=== PATIENT | female | born 1980 | race Caucasian/White ===

== ENCOUNTER → 2017-04-10 | Outpatient (CLI) | payer MEDICAID ==
[~2017-04-10] MED LIST: BUPR1FIL3 SC; IBUP-1223 PO; METH40TA3 PO; OXYC1TAB7 PO
== END ==
LOC: STAR 13:26
PROVIDERS: ATTEND Obstetrics & Gynecology Female Pelvic Medicine and Reconstructive Surgery
DX: Z02.9 Encounter for administrative examinations, unspecified (principal)

== ENCOUNTER 2017-04-15 10:53 | Day surgery (SDC) | payer MEDICAID ==
[2017-04-10 14:11] VITALS: BP 129/79
[~2017-04-15] VITALS: Ht 172.7 cm; Wt 72.6 kg
[~2017-04-15 10:53] MED LIST changes: +BUPIVACAINE/PF 0.25% ONE; +EPINEPHRINE 1 MG/ML, 1ML ONE; +NEOMY/POLYMYXIN B GU IRR. 1 ML IRRIG ONE
[2017-04-15] MEDS ORDERED: LACTATED RINGERS 1,000 ML IV SCH (11:17)
[2017-04-15 11:22] VITALS: BP 129/79
[2017-04-15] MEDS ORDERED: LIDOCAINE 1%, 2ML SQ PRN (11:30)
[2017-04-15 11:32] LABS: HCG UR SG 1.018 (1.003-1.030)
[2017-04-15] MEDS ORDERED: DEXAMETHASONE 4 MG/ML, 1ML ONE ×2 (13:50)
[2017-04-15] MEDS ORDERED: ROCURONIUM 10 MG/ML,10ML ONE (13:50)
[2017-04-15] MEDS ORDERED: CEFAZOLIN 1,000 MG ONE ×2 (13:50→13:51)
[2017-04-15] MEDS ORDERED: LIDOCAINE-MPF 2% ,5ML ONE (13:50)
[2017-04-15] MEDS ORDERED: PROPOFOL 10 MG/ML, 20ML ONE (13:50)
[2017-04-15] MEDS ORDERED: ONDANSETRON 2MG/ML, 2ML ONE (14:33)
[2017-04-15] MEDS ORDERED: FUROSEMIDE 20 MG/2 ML ONE (14:35)
[2017-04-15] MEDS ORDERED: KETOROLAC 30 MG/1 ML ONE (14:38)
[2017-04-15] MEDS ORDERED: FENTANYL PF 100 MCG/2ML ONE ×2 (14:53→15:19)
[2017-04-15] MEDS: FENTANYL PF 100 MCG/2ML IV PRN ×2 (15:22→15:30)
[2017-04-15] MEDS ORDERED: HYDROmorphone 2 MG/ML, 1ML ONE (15:27)
[2017-04-15] MEDS ORDERED: HYDROcodone/APAP 7.5-325MG/15ML UDC PO PRN (15:30)
[2017-04-15] MEDS ORDERED: MEPERIDINE/PF 25MG/0.5ML IVPush PRN (15:30)
[2017-04-15] MEDS ORDERED: ONDANSETRON 2MG/ML, 2ML IVPush PRN ×2 (15:30→17:00)
[2017-04-15] MEDS ORDERED: morphine SULFATE 10 MG/ML, 1ML IV PRN (15:30)
[2017-04-15] MEDS ORDERED: ACETAMINOPHEN 325 MG TABLET PO PRN ×2 (15:30→17:00)
[2017-04-15] MEDS ORDERED: OXYcodone 5 MG/5 ML ORAL.SOL UDC PO PRN (15:30)
[2017-04-15] MEDS: HYDROmorphone 1 MG/ML, 1ML IV PRN ×3 (15:37→16:17)
[2017-04-15] MEDS ORDERED: OXYcodone 5 MG/5 ML ORAL.SOL UDC ONE (15:43)
[2017-04-15] MEDS ORDERED: MEPERIDINE/PF 50 MG/ML ONE (15:56)
[2017-04-15] MEDS ORDERED: OXYcodone/APAP 5/325MG TABLET PO PRN (17:00)
[2017-04-15] MEDS ORDERED: HYDROcodone/APAP 5/325 TABLET PO PRN (17:00)
[2017-04-15] MEDS ORDERED: ZOLPIDEM 5MG TABLET PO PRN (17:00)
[2017-04-15] MEDS: HYDROmorphone 2 MG/ML, 1ML IVPush PRN ×2 (17:06→17:50)
[2017-04-15] MEDS ORDERED: IBUPROFEN 600 MG TABLET PO SCH (21:00)
[2017-04-15] MEDS ORDERED: DOCUSATE 100 MG CAPSULE PO SCH (21:00)
[2017-04-15] MEDS ORDERED: SIMETHICONE 80 MG CHEW TAB PO SCH (21:00)
== END 2017-04-15 19:20 ==
LOC: OUT 10:53
PROVIDERS: ATTEND Obstetrics & Gynecology Female Pelvic Medicine and Reconstructive Surgery
DX: N92.1 Excessive and frequent menstruation with irregular cycle (principal); N39.46 Mixed incontinence; N94.6 Dysmenorrhea, unspecified; N94.10 Unspecified dyspareunia; N81.4 Uterovaginal prolapse, unspecified; Z88.0 Allergy status to penicillin; Z98.890 Other specified postprocedural states
CPT/HCPCS: 57265; 57282; 57288; 58552; 81025; 88307; C1771; J0171; J0690; J1100; J1170; J1885; J1940; J2175; J2405; J2704; J3010; J3490; J7120